=== PATIENT | female | born 1950 | race Native Hawaiian/Other Pacific Islander ===

== ENCOUNTER 2016-10-10 12:15 | Outpatient (CLI) | payer OTHER | END 2016-10-10 19:31 | disposition home or self-care (01) | LOC: LABW 12:15 | DX: M85.88 Other specified disorders of bone density and structure, other site (principal) | CPT/HCPCS: 36415; 82310 ==

== ENCOUNTER 2016-10-12 10:56 | Outpatient (CLI) | payer OTHER ==
[~2016-10-12] VITALS: Ht 167.6 cm; Wt 63.5 kg
[2016-10-12 11:00] VITALS: BP 135/79; TEMP 97.8
== END 2016-10-12 11:56 | disposition home or self-care (01) ==
LOC: INF 10:56
DX: M85.88 Other specified disorders of bone density and structure, other site (principal)
CPT/HCPCS: 96372; J0897

== ENCOUNTER 2020-07-27 12:51 | Outpatient (CLI) | payer OTHER | END 2020-07-27 22:58 | disposition home or self-care (01) | LOC: MAMMO 12:51 | PROVIDERS: ATTEND Internal Medicine Medical Oncology | DX: Z12.31 Encounter for screening mammogram for malignant neoplasm of breast (principal); M81.0 Age-related osteoporosis without current pathological fracture ==

== ENCOUNTER 2021-08-03 11:10 | Outpatient (CLI) | payer OTHER | END 2021-08-03 20:01 | disposition home or self-care (01) | LOC: MAMMO 11:10 | PROVIDERS: ATTEND Internal Medicine Medical Oncology | DX: Z12.31 Encounter for screening mammogram for malignant neoplasm of breast (principal) ==

== ENCOUNTER 2021-08-10 10:00 | Outpatient (CLI) | payer OTHER | END 2021-08-10 18:53 | disposition home or self-care (01) | LOC: MAMMO 10:00 | PROVIDERS: ATTEND Internal Medicine Medical Oncology | DX: R92.8 Other abnormal and inconclusive findings on diagnostic imaging of breast (principal) ==

== ENCOUNTER 2022-02-21 08:08 | Emergency (ER) | payer OTHER ==
[~2022-02-21] VITALS: Ht 167.6 cm; Wt 61.2 kg
[2022-02-21 08:15] VITALS: TEMP 98
[2022-02-21 09:59] VITALS: BP 130/78
== END 2022-02-21 10:03 | disposition home or self-care (01) ==
LOC: ED 08:08
PROC: 0HQMXZZ Repair Right Foot Skin, External Approach (ICD-10-PCS; principal; 2022-02-21)
DX: S91.311A Laceration without foreign body, right foot, initial encounter (principal); W45.8XXA Other foreign body or object entering through skin, initial encounter; Y93.I9 Activity, other involving external motion; Y92.89 Other specified places as the place of occurrence of the external cause
CPT/HCPCS: 90471; 90715; 96372; 99283; J0690; J2001

== ENCOUNTER 2022-04-21 12:53 | Outpatient (CLI) | payer OTHER | END 2022-04-21 21:30 | disposition home or self-care (01) | LOC: MAMMO 12:53 | PROVIDERS: ATTEND Internal Medicine Medical Oncology | DX: C50.411 Malignant neoplasm of upper-outer quadrant of right female breast (principal) | CPT/HCPCS: G0279 ==

== ENCOUNTER 2022-05-14 08:04 | Outpatient (CLI) | payer OTHER ==
[2022-05-14 08:39] LABS: PLATELET COUNT 283 K/uL (152-353)
[2022-05-14 08:56] LABS: POTASSIUM 3.5 mmol/L (3.6-5.2)
== END 2022-05-14 19:03 | disposition home or self-care (01) ==
LOC: LABW 08:04
PROVIDERS: ATTEND Nurse Practitioner Adult Health
DX: F51.12 Insufficient sleep syndrome (principal); G25.0 Essential tremor; G61.89 Other inflammatory polyneuropathies; E53.8 Deficiency of other specified B group vitamins
CPT/HCPCS: 36415; 80053; 82607; 84439; 84443; 85027

== ENCOUNTER 2022-08-15 12:55 | Outpatient (CLI) | payer OTHER | END 2022-08-15 19:18 | disposition home or self-care (01) | LOC: MAMMO 12:55 | PROVIDERS: ATTEND Internal Medicine Medical Oncology | DX: Z12.31 Encounter for screening mammogram for malignant neoplasm of breast (principal) ==

== ENCOUNTER 2023-08-27 12:29 | Outpatient (CLI) | payer OTHER | END 2023-08-27 19:42 | disposition home or self-care (01) | LOC: MAMMO 12:29 | PROVIDERS: ATTEND Internal Medicine Medical Oncology | DX: Z12.31 Encounter for screening mammogram for malignant neoplasm of breast (principal); M85.89 Other specified disorders of bone density and structure, multiple sites ==